=== PATIENT | male | born 1960 | race Caucasian/White ===

== ENCOUNTER 2018-08-20 09:55 | Emergency (ER) | payer SELFPAY ==
[~2018-08-20] VITALS: Ht 182.9 cm; Wt 70.3 kg
[~2018-08-20 09:55] MED LIST: AZITHROMYCIN250 MG ORAL
[2018-08-20] MEDS ORDERED: AMLODIPINE BESY10 MG ORAL (10:07)
--- NOTE | 2018-08-20 10:36 | Emergency Room Report ---
History of Present Illness General Chief Complaint: Flu Like Symptoms Source: Patient Present Illness HPI Mr. Turner is 58 yo male with hx of hypertension psoriasis, sciatica presents with cough fever scratchy throat. Today he's had worsening shortness of breath. Feels as if his chest is being squeezed. White sputum production. 6 years ago hx of of pneumonia. Currently only taking amlodipine and trazodone for insomnia. Allergies: Coded Allergies: MIDAZOLAM (Verified Allergy, Unknown, 09/20/09) PROCHLORPERAZINE (Verified Allergy, Unknown, 09/20/09) Patient History Past Surgical History: other - colorectal surgery for fissure, vasectomy Social History Narrative Reviewed Nursing Documentation: PMH: Agreed; PSxH: Agreed Nursing Documentation-PMH Past Medical History: No History, Except For Hx Cardiac Problems: No - Pollen syndrome/ pneumonia Hx Hypertension: Yes - psoriasis arthritis Hx Pacemaker: No Hx Asthma: No Hx COPD: No Hx Diabetes: No Hx Cancer: No Hx Gastrointestinal Problems: No Hx Dialysis: No History Of Psychiatric Problem: No Hx Neurological Problems: No Hx Cerebrovascular Accident: No Hx Seizures: No Review of Systems Constitutional: Reports: fever, malaise Respiratory: Reports: cough Gastrointestinal: Denies: abdominal pain All Other Systems: negative except mentioned in HPI Physical Exam Vital Signs Date Time Temp Pulse Resp B/P (MAP) Pulse Ox O2 Delivery O2 Flow Rate FiO2 08/20/18 10:01 97.4 71 20 118/81 96 Room Air 97.3 Sp02 EP Interpretation: reviewed, normal General Appearance: no apparent distress, alert, GCS 15, non-toxic, other - frequent cough Head: normocephalic, atraumatic Eyes: bilateral eye normal inspection ENT: hearing grossly normal, normal pharynx, no angioedema, normal voice Neck: full range of motion, supple/symm/no masses Respiratory: chest non-tender, rales - RUL , speaking full sentences Cardiovascular #1: regular rate, rhythm, no edema Gastrointestinal: normal bowel sounds, non tender, soft, non-distended, no guarding, no rebound Musculoskeletal: back normal, gait/station normal, normal range of motion, non- tender, calf tenderness Neurologic: alert, oriented x3, responsive, motor strength/tone normal, sensory intact, speech normal Psychiatric: judgement/insight normal, memory normal, mood/affect normal, no suicidal/homicidal ideation Skin: normal color, no rash, warm/dry, well hydrated Lymphatic: no adenopathy Medical Decision Making Diagnostic Impression: Primary Impression: Atypical pneumonia ER Course Mr. Turner presents with cough dyspnea. Diffuse scarring lung on radiographs. Concerning for primary lung dz. Will treat for PNA with levaquin. Encouraged f /u with PCP Chest X-Ray Diagnostic Results Chest X-Ray Diagnostic Results : Chest X-Ray Ordered: Yes # of Views/Limited/Complete: 2 View Indication: Shortness of Breath EP Interpretation: Yes Interpretation: no consolidation, no effusion, no pneumothorax Impression: Other - This image has been electronically signed by Dr. Lindsey Forman. I have reviewed CXR diffuse scaring Electronically Signed by: Dr. Lindsey Forman Last Vital Signs Date Time Temp Pulse Resp B/P (MAP) Pulse Ox O2 Delivery O2 Flow Rate FiO2 08/20/18 10:19 71 20 Room Air 08/20/18 10:01 97.4 118/81 96 97.3 Disposition: HOME, SELF-CARE Condition: Stable Lindsey Forman MD Aug 20, 2018 10:36
[2018-08-20 10:40] VITALS: BP 121/82
[2018-08-20] MEDS ORDERED: Albuterol/Ipratropium 3ml neb HHN ONE (10:45)
--- NOTE | 2018-08-20 11:26 | Diagnostic Imaging Report ---
Chest PA and lateral views INDICATION: Cough COMPARISON: Chest x-ray dated 02/11/12 FINDINGS: PA and lateral views of the chest are obtained. Left chest wall surgical clips. The cardiomediastinal silhouette is within normal limits. Increased pulmonary markings may be related to congestion. No pleural effusions. Bony elements are within normal limits. IMPRESSION: Left chest wall surgical clips with increased pulmonary markings suggestive of congestion.
[2018-08-20] MEDS ORDERED: Levofloxacin 500mg tab ORAL ONE (11:30)
[2018-08-20] MEDS ORDERED: TESSALON PERLE100 M2 ORAL (11:32)
[2018-08-20] MEDS ORDERED: LEVOFLOXACIN750 MG ORAL (11:47)
[2018-08-20 11:57] VITALS: BP_SYST 121; BP_DIAS 77; BP_DIAS 82
== END 2018-08-20 11:57 | disposition home or self-care (01) ==
LOC: EMR 11:20
DX: J18.9 Pneumonia, unspecified organism (principal)
CPT/HCPCS: 71046; 94640; 94664; 99284; J7620